=== PATIENT | male | born 1950 | race Caucasian/White ===

== ENCOUNTER 2023-04-06 06:44 | Day surgery (SDC) | payer MEDICARE, BC ==
[~2023-04-06 06:44] MED LIST: Dextrose 5%-0.45% NaCl 1,000 ML IV SCH
[2023-04-06] MEDS ORDERED: fentaNYL 100 MCG/2 ML SDV IV ONE ×3 (06:45→07:56)
[2023-04-06] MEDS ORDERED: Midazolam 1 MG/ML 2 ML SDV IV ONE ×5 (06:45→08:02)
[2023-04-06] MEDS ORDERED: Dextrose 5%-0.45% NaCl 1,000 ML IV SCH (07:00)
[2023-04-06] MEDS ORDERED: Sodium Chloride 0.9% 10 ML Syringe FLUSH PRN (07:00)
[2023-04-06] MEDS ORDERED: Midazolam 1 MG/ML 2 ML SDV ONE (07:46)
[2023-04-06] MEDS ORDERED: fentaNYL 100 MCG/2 ML SDV ONE (07:47)
[2023-04-06 09:41] VITALS: BP 192/73; PULSE 68
== END 2023-04-06 09:49 | disposition home or self-care (01) ==
LOC: DL.ENDO 06:44
PROVIDERS: ATTEND Internal Medicine Gastroenterology
DX: Z12.11 Encounter for screening for malignant neoplasm of colon (principal); K57.30 Diverticulosis of large intestine without perforation or abscess without bleeding; K64.8 Other hemorrhoids; R63.4 Abnormal weight loss; I25.10 Atherosclerotic heart disease of native coronary artery without angina pectoris; I10 Essential (primary) hypertension; E78.5 Hyperlipidemia, unspecified; F20.9 Schizophrenia, unspecified; E11.9 Type 2 diabetes mellitus without complications; H54.61 Unqualified visual loss, right eye, normal vision left eye; Z86.73 Personal history of transient ischemic attack (TIA), and cerebral infarction without residual deficits; Z98.890 Other specified postprocedural states
CPT/HCPCS: G0121; J2250; J3010; J7042